=== PATIENT | male | born 1975 | race Caucasian/White ===

== ENCOUNTER → 2019-01-07 | Outpatient (REF) ==
--- NOTE | 2019-01-07 11:27 | REP ---
Clinical: Pain. Technique: Frontal view of the pelvis with neutral and frog lateral views of the right and left hip. Findings: Orthopedic screws overlie the L5-S1 level and there is evidence for prior right hip replacement which is grossly normal in appearance. There is no evidence for acute fracture dislocation. The left hip demonstrates moderate arthritic changes including subchondral sclerosis to the acetabulum and femoral head as well as joint space narrowing without significant osteophytosis or periarticular calcifications/loose bodies. Impression: Relatively satisfactory appearance of the right hip replacement. Moderate arthritic degenerative changes to the left hip. Electronically Signed by Edwar Flores MD 01/07/2019 11:18 A
--- NOTE | 2019-01-07 11:31 | REP ---
LUMBOSACRAL SPINE, AP AND LATERAL: Three AP and lateral views of the lumbosacral spine are performed. There is no compression fracture. There is straightening of the normal lumbar lordosis. Metallic screws and metallic clips are seen at the lumbosacral junction. There is mild spurring at L1 and L2 with slight disc space narrowing as well as subchondral sclerosis. Posterior elements are intact. Incidental note is made of a right hip prosthesis. There appear to be degenerative changes of the left hip joint of a mild to moderate degree. IMPRESSION: Postsurgical changes L5-S1. No compression fracture. Straightening of normal lordosis. Mild spurring and slight disc space narrowing L1-2. Electronically Signed by Feroz Hurtado MD 01/07/2019 11:44 A
== END ==
LOC: M SMT 10:07
PROVIDERS: ATTEND Internal Medicine
DX: Z00.00 Encounter for general adult medical examination without abnormal findings (principal)

== ENCOUNTER → 2024-12-30 | Outpatient (REF) | LOC: M PLAIMG 13:13 | PROVIDERS: ATTEND Internal Medicine | DX: M54.50 Low back pain, unspecified (principal) ==